=== PATIENT | male | born 1945 | race Asian ===

== ENCOUNTER 2023-11-05 08:08 | Inpatient (IN) | payer OTHER, MEDICAID ==
[~2023-11-05] VITALS: Ht 170.2 cm; Wt 64.9 kg
[2023-11-05 08:26] VITALS: BP_SYST 143; PULSE 97; RESP 22; TEMP 98.5; O2SAT 98
[2023-11-05 09:06] LABS: BASOPHILS % (AUTO) 0.5 % (0.0-2.0); EOSINOPHILS # (AUTO) 0.1 K/uL (0.0-0.4); EOSINOPHILS % (AUTO) 2.3 % (0.0-4.0); HEMATOCRIT 36.2 % (36-54); HEMOGLOBIN 11.9 g/dL (14.0-18.0); LYMPHOCYTES # (AUTO) 0.8 K/uL (1.0-5.5); LYMPHOCYTES % (AUTO) 14.9 % (20.5-51.5); MEAN CORPUSCULAR HEMOGLOBIN 31 pg (27-31); MEAN CORPUSCULAR HGB CONC 33 % (32-36); MEAN CORPUSCULAR VOLUME 95 fL (79.0-98.0); MONOCYTES # (AUTO) 0.4 K/uL (0.0-1.0); MONOCYTES % (AUTO) 7.5 % (1.7-9.3); NEUTROPHILS # (AUTO) 3.9 K/uL (1.8-7.7); NEUTROPHILS % (AUTO) 74.8 % (40.0-70.0); PLATELET COUNT (AUTO) 115 K/uL (130-430); RED BLOOD CELL COUNT(AUTO) 3.83 MIL/uL (4.2-6.2); WHITE BLOOD COUNT (AUTO) 5.2 K/uL (4.8-10.8)
[2023-11-05 09:34] LABS: INR 1.1 (0.80-1.20); PROTHROMBIN TIME 11.3 SECS (9.5-12.5)
[2023-11-05 09:38] LABS: ALANINE AMINOTRANSFERASE 12 U/L (12-78); ALBUMIN 3.8 g/dL (3.4-4.8); ANION GAP 8 (5-15); ASPARTATE AMINOTRANSFERASE 19 U/L (10-37); BILIRUBIN,DIRECT 0.3 mg/dL (0.0-0.3); CALCIUM 8.8 mg/dL (8.4-11.0); CARBON DIOXIDE 29 mmol/L (23-29); CHLORIDE 105 mmol/L (98-107); CREATINE KINASE, TOTAL 93 U/L (39-308); CREATININE 1.01 mg/dL (0.55-1.30); GLUCOSE 117 mg/dL (74-106); POTASSIUM 3.4 mmol/L (3.5-5.1); SODIUM SERUM 142 mmol/L (136-145); THYROID STIMULATING HORMONE 2.74 uIu/mL (0.34-4.82); TOTAL PROTEIN, SERUM 7.5 g/dL (6.4-8.3); UREA NITROGEN, BLOOD 25 mg/dL (8-21)
[2023-11-05 12:01] LABS: BILIRUBIN,URINE NEGATIVE (NEGATIVE); BLOOD, URINE NEGATIVE (NEGATIVE); CLARITY/URINE CLEAR (CLEAR); COLOR,URINE YELLOW (YELLOW); GLUCOSE,URINE NEGATIVE (NEGATIVE); KETONES,URINE NEGATIVE (NEGATIVE); LEUKOCYTE ESTERASE ,URINE NEGATIVE (NEGATIVE); NITRITE, URINE NEGATIVE (NEGATIVE); PROTEIN URINE NEGATIVE (NEGATIVE)
[2023-11-05] MEDS: NACL 0.9% 1,000 ML IV ONE ×2 (18:26→20:15)
[2023-11-05] MEDS ORDERED: HYDROcodone/ACETAMIN 10-325 MG TAB PO PRN (19:30)
[2023-11-05] MEDS ORDERED: ACET325C6 PO (19:59)
[2023-11-05] MEDS: KETOROLAC TROMETHAMINE 15 MG VIAL IVP ONE (20:14)
[2023-11-05 20:30] VITALS: BP_SYST 138; PULSE 72; RESP 18; TEMP 98.2; O2SAT 95
[2023-11-06] VITALS: BP_SYST 132; PULSE 78; RESP 18; TEMP 98.6; O2SAT 96
[2023-11-06] MEDS: HYDROcodone/ACETAMIN 5-325 MG TAB (NORCO/ VICODIN) PO PRN (06:34)
[2023-11-06 07:13] LABS: ALANINE AMINOTRANSFERASE 7 U/L (12-78); ALBUMIN 3.2 g/dL (3.4-4.8); ANION GAP 7 (5-15); ASPARTATE AMINOTRANSFERASE 22 U/L (10-37); CALCIUM 8.3 mg/dL (8.4-11.0); CARBON DIOXIDE 27 mmol/L (23-29); CHLORIDE 108 mmol/L (98-107); CREATININE 0.88 mg/dL (0.55-1.30); GLUCOSE 93 mg/dL (74-106); POTASSIUM 3.8 mmol/L (3.5-5.1); SODIUM SERUM 142 mmol/L (136-145); TOTAL BILIRUBIN 1.3 mg/dL (0.0-1.0); TOTAL PROTEIN, SERUM 6.6 g/dL (6.4-8.3); UREA NITROGEN, BLOOD 15 mg/dL (8-21)
[2023-11-06 07:31] LABS: BASOPHILS % (AUTO) 0.9 % (0.0-2.0); EOSINOPHILS # (AUTO) 0.2 K/uL (0.0-0.4); EOSINOPHILS % (AUTO) 5.1 % (0.0-4.0); HEMATOCRIT 34.5 % (36-54); HEMOGLOBIN 11.5 g/dL (14.0-18.0); LYMPHOCYTES # (AUTO) 1.1 K/uL (1.0-5.5); LYMPHOCYTES % (AUTO) 28.4 % (20.5-51.5); MEAN CORPUSCULAR HEMOGLOBIN 31 pg (27-31); MEAN CORPUSCULAR HGB CONC 33 % (32-36); MEAN CORPUSCULAR VOLUME 94 fL (79.0-98.0); MONOCYTES # (AUTO) 0.4 K/uL (0.0-1.0); MONOCYTES % (AUTO) 10.6 % (1.7-9.3); NEUTROPHILS # (AUTO) 2.1 K/uL (1.8-7.7); PLATELET COUNT (AUTO) 103 K/uL (130-430); RED BLOOD CELL COUNT(AUTO) 3.68 MIL/uL (4.2-6.2); RED CELL DISTRIBUTION WIDTH 15.1 % (9.0-15.0); WHITE BLOOD COUNT (AUTO) 3.8 K/uL (4.8-10.8)
[2023-11-06 08:00] VITALS: BP_SYST 92; PULSE 70; RESP 18; TEMP 96.7; O2SAT 95
[2023-11-06 10:33] VITALS: O2SAT 96
[2023-11-06] MEDS: NACL 0.9% 1,000 ML IV ONE (10:41)
[2023-11-06 12:40] VITALS: BP_SYST 141; PULSE 71; RESP 16; TEMP 98.1; O2SAT 97
[2023-11-06 16:41] VITALS: BP_SYST 141; PULSE 68; RESP 16; TEMP 97.5; O2SAT 98
[2023-11-06 20:40] VITALS: BP_SYST 144; PULSE 80; RESP 20; TEMP 97.4; O2SAT 96
[2023-11-07 00:25] VITALS: BP_SYST 150; PULSE 76; RESP 16; TEMP 96.8; O2SAT 99
[2023-11-07 08:00] VITALS: BP_SYST 159; PULSE 68; RESP 17; TEMP 98.6; O2SAT 95
[2023-11-07 09:31] LABS: BASOPHILS % (AUTO) 0.7 % (0.0-2.0); EOSINOPHILS # (AUTO) 0.2 K/uL (0.0-0.4); EOSINOPHILS % (AUTO) 4.2 % (0.0-4.0); HEMATOCRIT 38.8 % (36-54); HEMOGLOBIN 12.8 g/dL (14.0-18.0); LYMPHOCYTES # (AUTO) 1.2 K/uL (1.0-5.5); LYMPHOCYTES % (AUTO) 27.1 % (20.5-51.5); MEAN CORPUSCULAR HEMOGLOBIN 31 pg (27-31); MEAN CORPUSCULAR HGB CONC 33 % (32-36); MEAN CORPUSCULAR VOLUME 94 fL (79.0-98.0); MONOCYTES # (AUTO) 0.3 K/uL (0.0-1.0); MONOCYTES % (AUTO) 6.5 % (1.7-9.3); NEUTROPHILS # (AUTO) 2.8 K/uL (1.8-7.7); NEUTROPHILS % (AUTO) 61.5 % (40.0-70.0); PLATELET COUNT (AUTO) 129 K/uL (130-430); RED BLOOD CELL COUNT(AUTO) 4.13 MIL/uL (4.2-6.2); RED CELL DISTRIBUTION WIDTH 15.1 % (9.0-15.0); WHITE BLOOD COUNT (AUTO) 4.5 K/uL (4.8-10.8)
[2023-11-07 09:54] LABS: ALANINE AMINOTRANSFERASE 14 U/L (12-78); ALBUMIN 3.9 g/dL (3.4-4.8); ANION GAP 6 (5-15); ASPARTATE AMINOTRANSFERASE 22 U/L (10-37); CALCIUM 8.7 mg/dL (8.4-11.0); CARBON DIOXIDE 30 mmol/L (23-29); CHLORIDE 104 mmol/L (98-107); CREATININE 0.88 mg/dL (0.55-1.30); GLUCOSE 101 mg/dL (74-106); POTASSIUM 3.6 mmol/L (3.5-5.1); SODIUM SERUM 140 mmol/L (136-145); TOTAL BILIRUBIN 1.4 mg/dL (0.0-1.0); TOTAL PROTEIN, SERUM 7.9 g/dL (6.4-8.3); UREA NITROGEN, BLOOD 17 mg/dL (8-21)
[2023-11-07 16:00] VITALS: BP_SYST 140; PULSE 72; RESP 18; TEMP 97.9; O2SAT 99
[2023-11-07 19:00] VITALS: O2SAT 96
[2023-11-07 21:00] VITALS: BP_SYST 157; PULSE 70; RESP 17; TEMP 98; O2SAT 96
[2023-11-08 04:00] VITALS: BP_SYST 106; PULSE 68; RESP 19; TEMP 98.1; O2SAT 98
[2023-11-08 07:00] VITALS: O2SAT 97
[2023-11-08 08:00] VITALS: BP_SYST 108; PULSE 72; RESP 18; TEMP 97.6; O2SAT 97
[2023-11-08 08:40] LABS: BASOPHILS % (AUTO) 0.7 % (0.0-2.0); EOSINOPHILS # (AUTO) 0.2 K/uL (0.0-0.4); EOSINOPHILS % (AUTO) 4.3 % (0.0-4.0); HEMATOCRIT 40.5 % (36-54); HEMOGLOBIN 13.5 g/dL (14.0-18.0); LYMPHOCYTES # (AUTO) 1.5 K/uL (1.0-5.5); LYMPHOCYTES % (AUTO) 29.4 % (20.5-51.5); MEAN CORPUSCULAR HEMOGLOBIN 31 pg (27-31); MEAN CORPUSCULAR HGB CONC 33 % (32-36); MEAN CORPUSCULAR VOLUME 94 fL (79.0-98.0); MONOCYTES # (AUTO) 0.3 K/uL (0.0-1.0); MONOCYTES % (AUTO) 6.2 % (1.7-9.3); NEUTROPHILS # (AUTO) 3.1 K/uL (1.8-7.7); NEUTROPHILS % (AUTO) 59.4 % (40.0-70.0); PLATELET COUNT (AUTO) 151 K/uL (130-430); RED BLOOD CELL COUNT(AUTO) 4.32 MIL/uL (4.2-6.2); RED CELL DISTRIBUTION WIDTH 15.2 % (9.0-15.0); WHITE BLOOD COUNT (AUTO) 5.2 K/uL (4.8-10.8)
[2023-11-08 09:00] LABS: ANION GAP 8 (5-15); CALCIUM 9.2 mg/dL (8.4-11.0); CARBON DIOXIDE 30 mmol/L (23-29); CHLORIDE 102 mmol/L (98-107); GLUCOSE 143 mg/dL (74-106); POTASSIUM 3.4 mmol/L (3.5-5.1); SODIUM SERUM 140 mmol/L (136-145); UREA NITROGEN, BLOOD 20 mg/dL (8-21)
[2023-11-08 11:12] VITALS: BP_SYST 145; PULSE 81; RESP 16; TEMP 97.3; O2SAT 96
[2023-11-08] MEDS: POTASSIUM CHLORIDE 20 MEQ/PKT PACKET PO ONE (11:22)
[2023-11-08] MEDS ORDERED: ACET-73 PO (11:38)
[2023-11-08 16:49] VITALS: BP_SYST 145; PULSE 80; RESP 16; TEMP 97.7; O2SAT 96
[2023-11-08 20:00] VITALS: BP_SYST 129; PULSE 83; RESP 18; TEMP 98; O2SAT 96
[2023-11-09] VITALS: BP_SYST 138; PULSE 66; RESP 20; TEMP 97.9; O2SAT 95
[2023-11-09] MEDS: ACETAMINOPHEN 500 MG TABLET PO PRN (06:44)
[2023-11-09 08:00] VITALS: BP_SYST 138; PULSE 78; RESP 18; TEMP 98.4; O2SAT 94
[2023-11-09 09:35] VITALS: O2SAT 97
[2023-11-09 11:04] VITALS: BP_SYST 148; PULSE 83; RESP 16; TEMP 97.9; O2SAT 98
== END 2023-11-09 15:00 | disposition home or self-care (01) | DRG 640 ==
LOC: SED 08:08 → SMU 19:56
PROVIDERS: ADMIT Student in an Organized Health Care Education/Training Program; ATTEND Student in an Organized Health Care Education/Training Program
DX: E86.0 Dehydration (principal); G93.41 Metabolic encephalopathy; E44.1 Mild protein-calorie malnutrition; Z59.00 Homelessness unspecified; M48.55XA Collapsed vertebra, not elsewhere classified, thoracolumbar region, initial encounter for fracture; D64.9 Anemia, unspecified; E87.6 Hypokalemia; Z79.899 Other long term (current) drug therapy; Z88.8 Allergy status to other drugs, medicaments and biological substances; Z68.22 Body mass index [BMI] 22.0-22.9, adult; M85.88 Other specified disorders of bone density and structure, other site
CPT/HCPCS: 36415; 71045; 72100; 73502; 80048; 80053; 80076; 81001; 81003; 82550; 83605; 84439; 84443; 84484; 85025; 85610; 85730; 93005; 97110-GP; 97116-GP; 97530-GP; 99285; J1885